=== PATIENT | female | born 1975 | race African-American/Black ===

== ENCOUNTER 2019-03-03 20:01 | Emergency (ER) | payer SELFPAY ==
[~2019-03-03] VITALS: Ht 175.3 cm; Wt 76.9 kg
[2019-03-03 23:47] VITALS: BP 111/77
== END 2019-03-03 23:49 | disposition home or self-care (01) ==
LOC: ER 20:36
DX: L29.9 Pruritus, unspecified (principal); F17.200 Nicotine dependence, unspecified, uncomplicated; Z88.0 Allergy status to penicillin; Z90.710 Acquired absence of both cervix and uterus
CPT/HCPCS: 99282